=== PATIENT | male | born 1975 | race Caucasian/White ===

== ENCOUNTER 2025-05-05 10:30 | Emergency (ER) | payer OTHER ==
[~2025-05-05] VITALS: Ht 185.4 cm; Wt 97.4 kg
[2025-05-05 10:32] VITALS: TEMP 98.2
[2025-05-05] MEDS ORDERED: CYCL-394 PO (11:54)
--- NOTE | 2025-05-05 11:55 | Physician Documentation ---
History of Present Illness ~ Chief Complaint: Back Pain Stated Complaint: BACK PAIN Time Seen by MD: 11:45 HPI 49-year-old male presents to the ED with a complaint of right lumbar pain. Says he bent over to grab something yesterday in and felt a sharp pain in his lumbar region. Since then he reports having back spasms. He denies any red flag symptoms including incontinence numbness tingling weakness He took ibuprofen 3 hours ago 800 mg Day of Onset: May 05, 2025 Medication Reconciliation Allergies: Coded Allergies: Sulfa (Sulfonamide Antibiotics) (Unverified Allergy, Mild, headaches, 05/05/25) Review of Systems All Other Systems at this time: Reviewed and Negative ROS As stated above in the HPI, otherwise all systems are reviewed and negative. Physical Exam Physical Exam Vital Signs: Temperature: 98.2, Source: Oral, Heart Rate: 96, Respiratory Rate: 16, BP: 155/110, Pulse Oximetry: 97, Weight: 97.400 Oxygen Flow Rate: 0 Physical Exam General: Alert, no apparent distress. Back: Tender to the lumbar region in the lower right via palpation Neurologic: Oriented x4. Motor reflexes intact Psychiatric: Normal mood and affect. Skin: Normal color, warm and dry. No edema, no ecchymosis. Progress Results/Orders Results/Orders Vital Signs 05/05/25 10:32 Temp 98.2 Pulse 96 Resp 16 B/P (MAP) 155/110 Pulse Ox 97 O2 Flow Rate 0 Medical Decision Making Additional information obtaine: old records Findings Patient presents with a all the clinical indications for a lumbar strain. Does not present with any focal deficits or weakness or other concerning sign. Going to treat him for pain inflammation via [place] and Valium in the ED and discharge him with cyclobenzaprine Differential Dx:Considerations: Fracture, Musculoskeletal pain, Strain, Urinary tract infection Departure Disposition: HOME / SELF CARE / HOMELESS Impression: Primary Impression: Strain of lumbar region Discharge Instructions: Lumbosacral Strain Departure Forms: Excuse form Work or School Excused From: Work Excuse beginning now through the following date: May 08, 2025 May Return but still avoid physical Activity from now until: May 08, 2025 May Return to full physical activity as of: May 08, 2025 Referrals: NO PRIMARY CARE PROVIDER (PCP) Prescriptions Cyclobenzaprine HCl (Cyclobenzaprine HCl) 10 Mg Tablet 1 TAB PO Q8H for muscle spasms for 10 Days, #30 TAB Prov: DEUCE BOND NP 05/05/25 Education Educated: Patient Educated regarding: diagnosis Signature Scribe Signature: [email or web address] Attestation: Scribed for Deuce Bond Investigation Lieutenant by Deuce Rivera NP . 05/05/25 11:54 DEUCE BOND NP May 05, 2025 11:55
[2025-05-05] MEDS: HYDROcodone/acetaminophen 10/325mg tab PO ONE (12:08)
[2025-05-05 12:14] VITALS: BP 154/107; PULSE 87; RESP 18; O2SAT 97
== END 2025-05-05 12:16 | disposition home or self-care (01) ==
LOC: ER 10:31
DX: S39.012A Strain of muscle, fascia and tendon of lower back, initial encounter (principal); Z88.2 Allergy status to sulfonamides; X50.0XXA Overexertion from strenuous movement or load, initial encounter; Y93.89 Activity, other specified; Y92.89 Other specified places as the place of occurrence of the external cause; Y99.8 Other external cause status
CPT/HCPCS: 99283